=== PATIENT | male | born 1980 | race African-American/Black ===

== ENCOUNTER 2024-09-04 10:35 | Emergency (ER) | payer OTHER, SELFPAY ==
[2024-09-04] MEDS ORDERED: Proparacaine 0.5% Opth 15 ML BOT ONE (10:55)
[2024-09-04] MEDS ORDERED: Nitroglycerin 0.4 MG TAB 1 EACH ONE ×2 (10:55)
[2024-09-04] MEDS ORDERED: Fluorescein Opthalmic Strip ONE (10:55)
[2024-09-04 11:24] LABS: #Basophils 0.09 10x3/uL (0.0-0.2); #Eosinophils Less than 0.03 10x3/uL (0.0-0.7); %Basophils 0.7 % (0.0-1.0); %Eosinophils 0.2 % (0.0-10.0); %Lymphocytes 6.6 % (21.0-51.0); %Monocytes 7.6 % (0.0-10.0); %Neutrophils 84.3 % (42.0-75.0); Hematocrit 39.5 % (42.0-52.0); Mean Corpuscular HGB CONC 32.9 g/dL (32.0-36.0); Mean Corpuscular Hemoglobin 29.1 pg (27.0-31.0); Mean Corpuscular Volume 88.4 fL (78.0-98.0); Mean Platelet Volume 9.9 fL (7.4-10.4); Platelet Count 295 10x3/uL (130-400); RBC Distribution Width 13.8 % (11.5-14.5); Red Blood Cell (RBC) Count 4.47 mill/uL (4.70-6.10)
[2024-09-04 11:39] LABS: INR-International Normal Ratio 1.1; PTT 29.9 sec (22.9-36.1); Prothrombin Time 14.1 sec (12.0-14.7)
[2024-09-04 11:40] LABS: D-Dimer Test 0.4 mcg/mL (0.27-0.43)
[2024-09-04 11:44] LABS: ALT (SGPT) 35 U/L (Less than 45); AST (SGOT) 25 U/L (11-34); Albumin 3.5 g/dL (3.1-4.5); Alkaline Phosphatase 59 U/L (40-110); Anion Gap 14 mmol/L (10-20); BUN (Urea Nitrogen) 13 mg/dL (8.9-20.6); Bilirubin, Total 0.7 mg/dL (0.3-1.2); Calc. Creatinine Clearance 0 mL/min (70-130); Calcium 8.4 mg/dL (7.8-10.44); Carbon Dioxide 19 mmol/L (22-29); Chloride 107 mmol/L (98-107); Estimated GFR 73; Globulin 3.8 g/dL (2.4-3.5); Glucose 115 mg/dL (70-105); Lipase 14 U/L (8-78); Potassium 4.3 mmol/L (3.5-5.1); Protein, Total 7.3 g/dL (6.0-8.3); Sodium 136 mmol/L (136-145); Troponin I Less than 0.010 ng/mL (< 0.028)
[2024-09-04 15:03] LABS: Troponin I Less than 0.010 ng/mL (< 0.028)
== END 2024-09-04 15:47 | disposition home or self-care (01) ==
LOC: ERS 10:35 → EEVIPCON 10:35 → ERS 15:47
DX: R07.2 Precordial pain (principal); I10 Essential (primary) hypertension; H20.9 Unspecified iridocyclitis; F17.210 Nicotine dependence, cigarettes, uncomplicated
CPT/HCPCS: 36415; 71045; 80053; 83605; 83690; 83880; 84484; 85025; 85379; 85610; 85730; 87040; 87428; 93005; 94760